=== PATIENT | male | born 1980 | race Caucasian/White ===

== ENCOUNTER → 2022-12-27 | Outpatient (CLI) | payer OTHER | LOC: CPPFTMAIN 13:57 | PROVIDERS: ATTEND Internal Medicine Rheumatology | DX: M34.9 Systemic sclerosis, unspecified (principal) | CPT/HCPCS: 94060; 94726; 94729 ==

== ENCOUNTER → 2023-02-06 | Outpatient (CLI) | payer OTHER ==
--- NOTE | 2023-02-07 09:54 | CA ---
Transthoracic Echo Report Name: Brian Morales Age: 42 Gender: M : 1980 Exam Date: 02/06/2023 14:14 Exam Location: [facility] Echo Ht (in): 70 Wt (lb): 170 Ordering Physician: Paulina Perez MD Attending/Referring Phys: Paulina Perez MD [employer] Padmini Dooley MARQUITA Procedure CPT: Indications: M34.9 Systemic Sclerosis Cardiac Hx: Technical Quality: Fair Contrast 1: Total Dose (mL): Contrast 2: Total Dose (mL): MEASUREMENTS (Male / Female) Normal Values 2D ECHO LV Diastolic Diameter PLAX 4.2 cm 4.2 - 5.9 / 3.9 - 5.3 cm LV Systolic Diameter PLAX 3.2 cm IVS Diastolic Thickness 1.0 cm 0.6 - 1.0 / 0.6 - 0.9 cm LVPW Diastolic Thickness 1.2 cm 0.6 - 1.0 / 0.6 - 0.9 cm LV Relative Wall Thickness 0.5 RV Internal Dim ED PLAX 3.2 cm M-MODE Aortic Root Diameter MM 3.1 cm LA Systolic Diameter MM 3.5 cm LA Ao Ratio MM 1.1 AV Cusp Separation MM 1.9 cm DOPPLER AV Peak Velocity 93.0 cm/s AV Peak Gradient 3.5 mmHg AV Mean Velocity 69.3 cm/s AV Mean Gradient 2.1 mmHg AV Velocity Time Integral 17.9 cm LVOT Peak Velocity 79.9 cm/s LVOT Peak Gradient 2.6 mmHg LVOT Velocity Time Integral 15.4 cm Mitral E Point Velocity 71.3 cm/s Mitral A Point Velocity 31.9 cm/s Mitral E to A Ratio 2.2 MV Deceleration Time 233.2 ms MV E' Velocity 13.3 cm/s Mitral E to MV E' Ratio 5.4 TR Peak Velocity 194.4 cm/s TR Peak Gradient 15.1 mmHg Right Ventricular Systolic Press 25.2 mmHg FINDINGS Left Ventricle Normal Left ventricular size, wall thickness, systolic function with no obvious regional wall motion abnormalities. Normal Left ventricular diastolic filling pattern. Left ventricular ejection fraction is estimated at 55 %. Right Ventricle Normal right ventricular size and function. Right ventricular systolic pressure within normal limits. Right Atrium Normal right atrial size. Left Atrium Left atrium not well visualized. Mitral Valve Structurally normal mitral valve. No mitral stenosis, regurgitation or prolapse. Aortic Valve Trileaflet aortic valve. No aortic valve stenosis or regurgitation. Tricuspid Valve Structurally normal tricuspid valve. Mild tricuspid regurgitation. Pulmonic Valve Structurally normal pulmonic valve. Trace pulmonic regurgitation. Pericardium No pericardial effusion. Aorta Normal size aortic root and proximal ascending aorta. CONCLUSIONS Normal the systolic function Previewed by: Dr. Xu Sinder MD (Electronically Signed) Final Date: 07 February 2023 09:53
== END | disposition home or self-care (01) ==
LOC: RADECHMAIN 13:59
PROVIDERS: ATTEND Internal Medicine Rheumatology
DX: I07.1 Rheumatic tricuspid insufficiency (principal); I37.1 Nonrheumatic pulmonary valve insufficiency; M34.9 Systemic sclerosis, unspecified
CPT/HCPCS: 93306